=== PATIENT | female | born 1990 | race Caucasian/White ===

== ENCOUNTER 2021-11-02 12:40 | Emergency (ER) | payer SELFPAY ==
[~2021-11-02] VITALS: Ht 167.6 cm; Wt 136.4 kg
[2021-11-02] MEDS ORDERED: ENULOSE10 GM/151 PO (13:39)
[2021-11-02] MEDS ORDERED: ZYRTEC 10MG10 MG PO (13:40)
[2021-11-02] MEDS ORDERED: FOLIC ACID 11 MG/TA1 PO (13:40)
[2021-11-02] MEDS ORDERED: COLACE 100100 MG/CAP PO (13:40)
[2021-11-02 13:41] LABS: BASO % 0.9 % (0.0-2.0); EOS % 0.6 % (0.0-4.0); GRAN # 3.2 K/mm3 (1.4-6.5); GRAN % 68.9 % (42.2-75.2); HEMATOCRIT 38.3 % (37.0-47.0); HEMOGLOBIN 13.4 g/dl (12.5-16.0); LYMPH # 0.9 K/mm3 (1.2-3.4); MEAN CELL VOLUME 87 fl (80.0-100.0); MEAN CORPUSCULAR HEMOGLOBIN 31 pg (27-31); MEAN CORPUSCULAR HGB CONC 35 g/dl (33.0-37.0); MEAN PLATELET VOLUME 9.8 fl (7.4-10.4); MONO # 0.4 K/mm3 (0.1-0.6); MONO % 9.2 % (1.7-9.3); PLATELET COUNT 191 K/mm3 (130-400); RED BLOOD COUNT 4.38 M/mm3 (4.10-5.30); REDCELL DISTRIBUTION WIDTH-CV 13.2 % (11.5-14.5)
[2021-11-02] MEDS ORDERED: MELATONIN5 M1 SL (13:41)
[2021-11-02] MEDS ORDERED: VRAYLAR6 MG PO (13:41)
[2021-11-02] MEDS ORDERED: SYNTHROID0.075 MG/T PO (13:41)
[2021-11-02] MEDS ORDERED: PROAIR HFA0.09 MG/AC IH (13:42)
[2021-11-02 13:50] LABS: ALBUMIN 3.8 gm/dL (3.5-5.0); BILIRUBIN,TOTAL 2.8 mg/dL (0.2-1.2); CALCIUM 8.6 mg/dL (8.4-10.2); CREATININE, serum 0.84 mg/dL (0.57-1.11); POTASSIUM 3.8 mmol/L (3.5-4.5); TOTAL PROTEIN 7.1 gm/dL (6.2-8.1)
[2021-11-02 13:51] LABS: COLLECTION METHOD CLEAN CATCH
[2021-11-02 14:14] LABS: AMORPHOUS CRYSTAL Present (NOT PRESENT); MUCOUS Present (NOT PRESENT); PH 6 (5-8); URINE APPEARANCE Hazy (CLEAR/HAZY); URINE BACTERIA Rare /hpf (NONE SEEN); URINE BILIRUBIN Positive (NEGATIVE); URINE BLOOD 1+ (NEGATIVE); URINE COLOR Amber (YELLOW); URINE GLUCOSE Negative (NEGATIVE); URINE KETONE Negative (NEGATIVE); URINE LEUKOCYTE ESTERASE Negative (NEGATIVE); URINE NITRATE Negative (NEGATIVE); URINE PROTEIN(semi-quant) 1+ (NEGATIVE); URINE RBC 0-2 /hpf (0-2); URINE UROBILINOGEN >=4.0 (NEGATIVE)
[2021-11-02 15:43] VITALS: BP 138/83; PULSE 82; TEMP 98
== END 2021-11-02 15:50 | disposition home or self-care (01) ==
LOC: COL.ER 12:40
PROVIDERS: Student in an Organized Health Care Education/Training Program
DX: R10.11 Right upper quadrant pain (principal); K76.0 Fatty (change of) liver, not elsewhere classified; Z91.040 Latex allergy status